=== PATIENT | male | born 1950 | race Caucasian/White ===

== ENCOUNTER 2024-05-24 06:53 | Day surgery (SDC) | payer MEDICARE ==
[2024-05-24] MEDS: Sodium Chloride 0.9% 10 ML Syringe FLUSH PRN (08:33)
== END 2024-05-24 08:40 | disposition home or self-care (01) ==
LOC: JP.SDS 06:53
PROVIDERS: ATTEND Ophthalmology
DX: H25.12 Age-related nuclear cataract, left eye (principal)
CPT/HCPCS: 66984; J3490; 00142-QZ; V2632

== ENCOUNTER 2024-05-31 06:13 | Day surgery (SDC) | payer MEDICARE ==
[2024-05-31] MEDS: Sodium Chloride 0.9% 10 ML Syringe FLUSH PRN (07:06)
== END 2024-05-31 07:50 | disposition home or self-care (01) ==
LOC: JP.SDS 06:13
PROVIDERS: ATTEND Ophthalmology
DX: E11.36 Type 2 diabetes mellitus with diabetic cataract (principal); H25.11 Age-related nuclear cataract, right eye; I10 Essential (primary) hypertension; J45.909 Unspecified asthma, uncomplicated
CPT/HCPCS: 66984; J3490; V2632; 00142-QZ